=== PATIENT | female | born 1985 | race Caucasian/White ===

== ENCOUNTER 2016-04-23 23:40 | Emergency (ER) | payer BC ==
[~2016-04-23] VITALS: Ht 162.6 cm; Wt 59.7 kg
[2016-04-23 23:43] VITALS: TEMP 37; Ht 162.6 cm; Wt 59.7 kg
[2016-04-24] MEDS ORDERED: BCPILLS PO (00:11)
[2016-04-24] MEDS ORDERED: VITACAP26 PO (00:12)
[2016-04-24] MEDS ORDERED: CYAN100T PO (00:12)
[2016-04-24] MEDS ORDERED: NIAC50TA9 PO (00:13)
[2016-04-24 01:02] LABS: MANUAL MICROSCOPIC REQUIRED? NO; REVIEW REQ? NO; URINE APPEARANCE CLEAR (CLEAR); URINE BILIRUBIN NEG (NEG); URINE COLOR YELLOW; URINE NITRITE NEG (NEG); URINE SPECIFIC GRAVITY 1.021 (1.000-1.030); UROBILINOGEN NEG (NEG)
[2016-04-24 01:04] LABS: BASO % 0.2 %; BASO ABS # 0.02 K/uL (0-0.2); COMPLETE YES; EOS % 0.4 %; IG% 0.1 %; LYMPH % 27.8 %; LYMPH ABS # 2.67 K/uL (1.2-3.4); MEAN CELL VOLUME 87.6 fL (80-100); MEAN CORPUSCULAR HEMOGLOBIN 28.8 pg (25-34); MEAN CORPUSCULAR HGB CONC 32.9 g/dl (32-36); MEAN PLATELET VOLUME 9.3 fL (7.4-10.4); MONO % 4.1 %; NEUT % 67.4 %; PLATELET COUNT 313 K/uL (130-400); RED BLOOD COUNT 4.68 M/uL (4.2-5.4); WHITE BLOOD COUNT 9.62 K/uL (4.8-10.8)
--- NOTE | 2016-04-24 01:11 | EMERGENCY ROOM VISIT NOTE ---
History Report prepared by [place]: Miquel Richardson Under the Supervision of: Dr. Kyung Chase D.O. First contact with patient: 23:49 Chief Complaint: DIARRHEA Stated Complaint: COFFEE GROUND EMESIS,BLACK STOOLS FOR 2 DAYS Nursing Triage Summary: Pt complains of black stools for a couple days. Then tonight pt vomited black liquid. Pt currently nauseated. nausea for several days. decreased appetite. pt takes "a lot of supplements". pt does not take iron supplements. intermittent abdominal pain. History of Present Illness The patient is a 30 year old female who presents to the Emergency Room with complaints of persistent black/tarry stools and coffee ground emesis that began two days prior to arrival. The patient states that she has been experiencing the black and tarry stools since Sunday, two days prior to arrival. She claims that these types of stools are not unusual for her and she experiences this once every 2-3 months. Today she had a black/tarry bowel movement in the morning , and first experienced the coffee ground emesis after an afternoon workout. The vomit had a metallic taste. She denies eating any black foods, and states that she ate cucumber and avocado for lunch which she vomited up as well. She is experiencing some discomfort in the left lower quadrant of her abdomen. She denies losing or gaining a significant amount of weight lately and had her LNMP 7 days ago. 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 A total of 10 systems reviewed and were otherwise negative. Past Medical & Surgical Medical Problems: (1) Black tarry stools Surgical Problems: (1) H/O breast augmentation Family History Patient reports no known family medical history. Patient denies any family medical histories. 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 Current/Historical Medications Scheduled Control Pills ( Control Pills), 1 TAB PO DAILY Cyanocobalamin (Vitamin B-12), 100 MCG PO DAILY Niacin (Niacin), Unknown Dose PO DAILY Omeprazole (Prilosec), 1 CAP PO DAILY Vitamins C & E (Vitamin C), 1 CAP PO DAILY Allergies Coded Allergies: No Known Allergies (Unverified , 04/24/16) Physical Exam Vital Signs Date Time Temp Pulse Resp B/P Pulse Ox O2 Delivery O2 Flow Rate FiO2 04/24/16 02:55 83 18 114/72 98 04/24/16 02:34 83 18 114/72 98 Room Air 04/24/16 00:50 71 18 117/70 100 Room Air 04/23/16 23:43 37.0 74 16 130/85 97 Room Air Physical Exam HEENT: Head - normocephalic and atraumatic Pupils are equal, round, and reactive to light. Extraocular eye muscles are intact, and sclera are anicteric. Nose - moist nasal mucosa without discharge. Mouth - moist buccal mucosa. Oropharynx is nonerythematous and there is no tonsillar exudate or edema noted. Neck: Supple; no JVD, nuchal rigidity, cervical lymphadenopathy. Heart: Regular rate and rhythm. There is a normal S1 and S2 with no murmurs, clicks, or gallops appreciated. Lungs: Clear to auscultation bilaterally with no wheezes, rales, or rhonchi. Abdomen: Soft, completely nontender, nondistended, with good bowel sounds. There are no palpable pulsatile masses or hepatosplenomegaly. There is no guarding, rigidity, or rebound noted. Extremities: No evidence of cyanosis, clubbing, or edema. There are easily palpable peripheral pulses. Skin: warm and dry with good turgor and no rashes. Rectal: Rectal exam-brown stool with maroon mucus; Hemoccult positive. Medical Decision & Procedures Laboratory Results 04/24/16 00:55 Red Blood Count 4.68, Mean Corpuscular Volume 87.6, Mean Corpuscular Hemoglobin 28.8, Mean Corpuscular Hemoglobin Concent 32.9, Mean Platelet Volume 9.3, Neutrophils (%) (Auto) 67.4, Lymphocytes (%) (Auto) 27.8, Monocytes (%) (Auto) 4.1, Eosinophils (%) (Auto) 0.4, Basophils (%) (Auto) 0.2, Neutrophils # (Auto) 6.49, Lymphocytes # (Auto) 2.67, Monocytes # (Auto) 0.39, Eosinophils # (Auto) 0.04, Basophils # (Auto) 0.02 04/24/16 00:55 Test 04/23/16 23:50 04/24/16 00:55 Urine Color YELLOW Urine Appearance CLEAR (CLEAR) Urine pH 5.0 (4.5-7.5) Urine Specific [place] 1.021 (1.000-1.030) Urine Protein NEG (NEG) Urine Glucose (UA) NEG (NEG) Urine Ketones 2+ (NEG) Urine Occult Blood NEG (NEG) Urine Nitrite NEG (NEG) Urine Bilirubin NEG (NEG) Urine Urobilinogen NEG (NEG) Urine Leukocyte Esterase NEG (NEG) Urine Test NEG (NEG) White Blood Count 9.62 K/uL (4.8-10.8) Red Blood Count 4.68 M/uL (4.2-5.4) Hemoglobin 13.5 g/dL (12.0-16.0) Hematocrit 41.0 % (37-47) Mean Corpuscular Volume 87.6 fL (80-100) Mean Corpuscular Hemoglobin 28.8 pg (25-34) Mean Corpuscular Hemoglobin Concent 32.9 g/dl (32-36) Platelet Count 313 K/uL (130-400) Mean Platelet Volume 9.3 fL (7.4-10.4) Neutrophils (%) (Auto) 67.4 % Lymphocytes (%) (Auto) 27.8 % Monocytes (%) (Auto) 4.1 % Eosinophils (%) (Auto) 0.4 % Basophils (%) (Auto) 0.2 % Neutrophils # (Auto) 6.49 K/uL (1.4-6.5) Lymphocytes # (Auto) 2.67 K/uL (1.2-3.4) Monocytes # (Auto) 0.39 K/uL (0.11-0.59) Eosinophils # (Auto) 0.04 K/uL (0-0.5) Basophils # (Auto) 0.02 K/uL (0-0.2) RDW Standard Deviation 40.9 fL (36.4-46.3) RDW Coefficient of Variation 12.8 % (11.5-14.5) Immature Granulocyte % (Auto) 0.1 % Immature Granulocyte # (Auto) 0.01 K/uL (0.00-0.02) Prothrombin Time 11.1 SECONDS (9.0-12.0) Prothromb Time International Ratio 1.0 (0.9-1.1) Activated Partial Thromboplast Time 24.9 SECONDS (21.0-31.0) Partial Thromboplastin Ratio 1.0 Anion Gap 11.0 mmol/L (3-11) Est Creatinine Clear Calc Drug Dose 75.7 ml/min Estimated GFR () 94.9 Estimated GFR (Non- 81.9 BUN/Creatinine Ratio 19.0 (10-20) Calcium Level 9.0 mg/dl (8.5-10.1) Total Bilirubin 0.3 mg/dl (0.2-1) Direct Bilirubin 0.1 mg/dl (0-0.2) Aspartate Amino Transf (AST/SGOT) 28 U/L (15-37) Alanine Aminotransferase (ALT/SGPT) 30 U/L (12-78) Alkaline Phosphatase 62 U/L (45-117) Total Protein 7.9 gm/dl (6.4-8.2) Albumin 3.9 gm/dl (3.4-5.0) Globulin 4.0 gm/dl (2.5-4.0) Albumin/Globulin Ratio 1.0 (0.9-2) Lipase 219 U/L (73-393) Laboratory results per my review. Medications Administered Medications (Trade) Dose Ordered Sig/Trini Route Start Time Stop Time Status Last Admin Dose Admin Pantoprazole Sodium/Syringe (Protonix Inj/ Syringe) 10 ml @ 5 mls/min NOW ONCE IV 04/24/16 02:15 04/24/16 02:16 DC 04/24/16 02:37 5 MLS/MIN Benzocaine/ Butamben/ Tetracaine HCl (Cetacaine [place]) 200 appln STK-MED ONCE .ROUTE 04/24/16 02:13 04/24/16 02:14 DC 04/24/16 02:35 200 APPLN Procedure Medications Ordered: Cetacaine spray NG tube placed IV Protonix ED Course 0034: Past medical records reviewed. The patient was evaluated in room A11. A complete history and physical exam was performed. An IV lock was initiated and labs are drawn as above. 0157: I performed a rectal exam on the patient at this time. See physical exam for pertinent findings. 0215: Ordered Pantoprazole 10 mL @ 5 mL/min IV. 0234: The patient had a NG tube placed to continuous suction. There was no black output, and no coffee ground emesis output. Only clear liquid was shown. 0249: Upon reevaluation, the patient is resting comfortably. The NG tube was removed I discussed findings and results with her. She verbalized agreement of the treatment plan. The patient was discharged home. 0252: Case management is meeting with the patient at this time. They will set up a GI follow-up for the patient tomorrow. Medical Decision The patient is a 30 year old female who presents to the emergency department with black/tarry stools and coffee ground emesis. Differential diagnosis include; upper gastrointestinal bleed, lower gastrointestinal bleed, gastritis, and colitis. Laboratory results were reviewed and show; a normal white count, stable hemoglobin and hematocrit, normal renal function, normal coagulation studies, normal LFTs, normal lipase. Urinalysis was reviewed and shows; 2+ ketones and negative . The patient has had been having intermittent episodes of black tarry stools over the past year. However, today, the patient developed coffee-ground emesis. This was quite concerning by history. NG tube did not produce any coffee-ground emesis. The patient is comfortable at this time. She is hemolytically stable. I suggested she start taking Prilosec daily and a bland diet. She is not to have any strenuous activity until follow-up with GI. Our case assistant will contact GI in the morning for follow-up. Impression Primary Impression: GI bleeding Scribe Attestation The scribe's documentation has been prepared under my direction and personally reviewed by me in its entirety. I confirm that the note above accurately reflects all work, treatment, procedures, and medical decision making performed by me. Departure Information Dispostion Home / Self-Care Prescriptions Omeprazole (PRILOSEC) 40 Mg Cap 1 CAP PO DAILY for 30 Days, #30 CAP 5 Refills Prov: Kyung Chase D.O. 04/24/16 Referrals No Doctor, Assigned (PCP) Forms HOME CARE DOCUMENTATION FORM, IMPORTANT VISIT INFORMATION, WORK / SCHOOL INSTRUCTIONS Patient Instructions A Signature Page, My [facility] Additional Instructions Rest. Take a bland diet. Take plenty of clear liquids No exercise til GI follow up Reurn to ER if you have any worsening symptoms Prilosec daily Follow up with GI
[2016-04-24 01:17] LABS: PROTHROMBIN TIME (PATIENT) 11.1 SECONDS (9.0-12.0)
[2016-04-24 01:23] LABS: CREATININE 0.93 mg/dl (0.60-1.20); POTASSIUM 4.3 mmol/L (3.5-5.1)
[2016-04-24] MEDS ORDERED: BENZOCAIN/TETRACA/BUTAM SPRAY 200 APPLN/20 GM SPRY ONE (02:13)
[2016-04-24] MEDS ORDERED: PANTOprazole INJ 40 MG in SYRINGE 0 ML IV ONE (02:15)
[2016-04-24] MEDS ORDERED: OMEP40CA36 PO (02:44)
[2016-04-24 02:55] VITALS: BP 114/72; PULSE 83; O2SAT 98
== END 2016-04-24 02:56 | disposition home or self-care (01) ==
LOC: C.EDB 23:41 → C.EDA 04-24 02:56
DX: K92.2 Gastrointestinal hemorrhage, unspecified (principal); Z79.3 Long term (current) use of hormonal contraceptives